=== PATIENT | male | born 1995 | race Two or more races ===

== ENCOUNTER 2018-05-08 08:25 | Emergency (ER) | payer MEDICAID, OTHER ==
[~2018-05-08] VITALS: Ht 182.9 cm; Wt 88.5 kg
[2018-05-08 08:47] VITALS: BP 128/81
[2018-05-08] MEDS: methylPREDNISolone SOD SUCC 125 MG/2 ML VL IM ONE (09:25)
[2018-05-08] MEDS: cefTRIAXone SOD 1,000 MG VL IM ONE (09:25)
== END 2018-05-08 09:56 | disposition home or self-care (01) ==
LOC: ER 08:36
DX: J03.90 Acute tonsillitis, unspecified (principal)
CPT/HCPCS: 71046; 96372; 99283; J0696; J2930

== ENCOUNTER 2018-05-29 22:37 | Emergency (ER) | payer SELFPAY ==
[~2018-05-29] VITALS: Ht 182.9 cm; Wt 95.3 kg
[2018-05-29 23:14] VITALS: BP 140/76
[2018-05-29] MEDS ORDERED: IBUPROFEN 600 MG TAB PO ONE ×2 (23:21→23:30)
[2018-05-30] MEDS ORDERED: cefTRIAXone SOD 1,000 MG VL IM ONE (00:15)
[2018-05-30] MEDS ORDERED: methylPREDNISolone SOD SUCC 125 MG/2 ML VL IM ONE (00:15)
[2018-05-30] MEDS ORDERED: LIDOCAINE 2% (LOCAL ANESTH.) PF 5ml SDV ONE (00:22)
== END 2018-05-30 01:04 | disposition home or self-care (01) ==
LOC: ER 22:37
DX: J06.9 Acute upper respiratory infection, unspecified (principal)
CPT/HCPCS: 96372; 99283; J0696; J2001; J2930

== ENCOUNTER 2019-08-03 12:31 | Emergency (ER) | payer MEDICAID, OTHER ==
[~2019-08-03] VITALS: Ht 182.9 cm; Wt 86.2 kg
[2019-08-03] MEDS ORDERED: ACETAMINOPHEN 500 MG TAB PO ONE (13:00)
[2019-08-03 13:01] VITALS: BP 142/91
== END 2019-08-03 17:13 | disposition left against medical advice (07) ==
LOC: ER 12:33
DX: S43.401A Unspecified sprain of right shoulder joint, initial encounter (principal); X58.XXXA Exposure to other specified factors, initial encounter; Y93.89 Activity, other specified; Y92.89 Other specified places as the place of occurrence of the external cause; Y99.8 Other external cause status
CPT/HCPCS: 73030